=== PATIENT | female | born 1960 | race Caucasian/White ===

== ENCOUNTER 2016-09-20 09:29 | Day surgery (SDC) | payer OTHER ==
[~2016-09-20 09:29] MED LIST: ATOR20TA38 PO; HYDR-3010 PO; LANS30CA PO; TRAZ100T15 PO
== END 2016-09-21 08:12 | disposition home or self-care (01) ==
LOC: GIL 09:29
PROVIDERS: ATTEND Internal Medicine Gastroenterology
DX: Z12.11 Encounter for screening for malignant neoplasm of colon (principal); Z53.9 Procedure and treatment not carried out, unspecified reason

== ENCOUNTER 2016-10-14 14:33 | Emergency (ER) | payer OTHER ==
[~2016-10-14] VITALS: Wt 46.0 kg
[2016-10-14] MEDS ORDERED: PRED20TA PO (15:15)
[2016-10-14] MEDS ORDERED: CARB15DR48 BOTH EARS (15:16)
[2016-10-14] MEDS ORDERED: BEN50 PO (15:16)
[2016-10-14] MEDS ORDERED: NAPH15DR OP (15:16)
--- NOTE | 2016-10-14 15:30 | ERD ---
ER Documentation Chief Complaint Date/Time DATE: 10/14/16 TIME: 15:23 Chief Complaint RASH ALL OVER BODY WORSE AT NIGHT, [place], RIGHT EAR PAIN X3DAYS HPI This is a 55-year-old female with multiple complaints. Patient has had a rash all over her body over the last 3 days. Patient states that she gets very itchy and is not able to sleep at night. Patient has not, contact with any new substances. She denies any lip, tongue, eye swelling.She is also complaining of ear pain and sore throat.Patient denies any difficulty swallowing, denies any ear discharge. She denies any runny nose, fever, chills. She does admit to she and watery eye for the last few days. Denies any eye pain or vision loss. The discharge from her eyes. She denies any chest pain or shortness of breath. There are no sick contacts at home. ROS 12 point review of systems was done, all negative except per HPI. Medications Home Meds Active Scripts Naphazoline Hcl/Phenir Mal (Naphcon-A Eye Drops) 15 Ml Drops, 15 ML OP BID for 3 Days, BOTTLE Prov:JERAMY COBIAN 10/14/16 Carbamide Peroxide* (Debrox*) 6.5% - 15 Ml Drops, 10 DROP BOTH EARS BID for 3 Days, BOTTLE Prov:JERAMY COBIAN 10/14/16 Diphenhydramine Hcl* (Benadryl*) 50 Mg Cap, 50 MG PO Q6 Y for ITCHING for 3 Days , CAP Prov:JERAMY COBIAN 10/14/16 Prednisone* (Prednisone*) 20 Mg Tab, 40 MG PO DAILY for 4 Days, TAB Prov:JERAMY COBIAN 10/14/16 Lansoprazole* (Lansoprazole*) 30 Mg Capsule.dr, 30 MG PO DAILY for 30 Days, CAP Prov:NANCI MÉNDEZ MD 02/23/16 Reported Medications Atorvastatin Calcium* (Atorvastatin Calcium*) 20 Mg Tablet, 20 MG PO QHS, #30 TAB 02/23/16 Hydroxyzine Hcl* (Hydroxyzine Hcl*) 10 Mg Tablet, 10 MG PO QHS, #30 TAB 02/23/16 Trazodone Hcl* (Trazodone Hcl*) 100 Mg Tablet, 100 MG PO QHS, #30 TAB 02/23/16 Allergies Allergies: Coded Allergies: No Known Allergy (Unverified , 02/23/16) PMhx/Soc History of Surgery: Yes (foot surgery, section) Anesthesia Reaction: No Hx Neurological Disorder: Yes (HEAD PAINS) Hx Respiratory Disorders: No Hx Cardiac Disorders: No Hx Psychiatric Problems: No Hx Miscellaneous Medical Probl: Yes (ULCERS) Hx Alcohol Use: No Hx Substance Use: No Hx Tobacco Use: Yes Physical Exam Vitals Vital Signs Date Time Temp Pulse Resp B/P Pulse Ox O2 Delivery O2 Flow Rate FiO2 10/14/16 15:05 97.9 77 18 137/65 99 Physical Exam GENERAL: The patient is well-developed, well-nourished, in no acute distress. NECK: Cervical spine is non tender with no step off. Supple, no nuchal rigidity HEENT: Atraumatic. Pupils equal, round and reactive to light. Extraocular muscles are grossly intact. Conjunctivae pink, no discharge. Cerumen impaction in both years. Tonsillar erythema with no exudates or uvular deviation. Clear rhinorrhea. No tongue, eye, lip swelling. RESPIRATORY: Clear to auscultation bilaterally. There are no rales, wheezes or rhonchi. HEART: Regular rate and rhythm. No murmurs, clicks, rubs or gallops. NEUROLOGIC: Alert and oriented. SKIN: Reveals on bilateral arms and on the abdomen. Procedures/MDM Differential Diagnosis: dermatitis, allergic urticaria, viral exanthem, insect bite, fungal infection ,viral exanthem, hand foot mouth disease, , impetigo, cellulitis, abscess, florentino belén syndrome, meningocemia, necrotizing fasciitis. This is a 55-year-old female presents to the ER with a rash all over her body. At this time etiology of rash is unknown. Patient be having allergic reaction. This is for severe allergic reaction is low. She does not have any facial swelling or difficulty in breathing. Patient does not have any ear infections or throat infections. She does however have cerumen impaction. Patient needs to follow-up with her primary care doctor within 1-2 days return to ER sooner symptoms worsen. My medical decision making was shared with the patient she understands and agrees with plan. Departure Diagnosis: Primary Impression: Rash Additional Impression: Multiple complaints Condition: Stable Patient Instructions: Self-Care for Skin Rashes Additional Instructions: Avani owens doctor MAANA y chelo travis ANNABEL PARA DENTRO DE 1-2 MCCONNELL.Dgale a la secretaria que nosotros le instruimos hacer esta annabel.Avise o llame si crowe condicin se empeora antes de la annabel. Regresa aqui si peor o no mejor. JERAMY COBIAN Oct 14, 2016 15:30
== END 2016-10-14 15:19 | disposition home or self-care (01) ==
LOC: E/R 14:33
DX: R21 Rash and other nonspecific skin eruption (principal); H92.01 Otalgia, right ear; J02.9 Acute pharyngitis, unspecified; Z87.891 Personal history of nicotine dependence
CPT/HCPCS: 99283

== ENCOUNTER 2017-01-10 10:00 | Day surgery (SDC) | payer OTHER ==
[~2017-01-10] VITALS: Ht 149.9 cm; Wt 45.6 kg
[~2017-01-10 10:00] MED LIST changes: +BEN50 PO; +CARB15DR50 BOTH EARS; +NAPH15DR OP; +PRED20TA PO
[2017-01-10] MEDS ORDERED: triamcinolone (11:58)
[2017-01-10] MEDS ORDERED: PRAVASTATIN (11:58)
[2017-01-10] MEDS ORDERED: OMERPRAZOLE (11:58)
[2017-01-10] MEDS ORDERED: CETIRIZINE HCL (11:58)
[2017-01-10 12:03] VITALS: BP 118/72; PULSE 59; RESP 18
[2017-01-10] MEDS ORDERED: PROPOFOL 20 ML ONE (12:23)
[2017-01-10] MEDS ORDERED: LIDOCAINE 2% (SDV) 5 ML INJ ONE (12:23)
[2017-01-10] MEDS ORDERED: FENTAnyl 50 MCG/ML VIAL ONE (13:14)
[2017-01-10] MEDS ORDERED: MIDAZOLAM 1 MG/ML 2 ML INJ ONE ×3 (13:14)
[2017-01-10 13:17] VITALS: BP 105/69; RESP 20
--- NOTE | 2017-01-14 07:13 | GILP ---
DATE OF PROCEDURE: 01/10/2017 PROCEDURE PERFORMED: 1. Esophagogastroduodenoscopy and biopsy. 2. Colonoscopy and biopsy. SURGEON: Beryl Cade MD. PREOPERATIVE DIAGNOSES: 1. Abdominal pain. 2. Screening colonoscopy. POSTOPERATIVE DIAGNOSES: 1. Hiatal hernia. 2. Reflux esophagitis. 3. Gastritis with erosions. 4. Gastric mucosal biopsies were taken for Helicobacter pylori test. 5. Colonoscopy all the way to the cecum. 6. Small polyp from the rectum and another one in the right colon, removed using the biopsy forceps. 7. Diverticulosis of the colon. 8. Internal hemorrhoids. INDICATION: Ms Helen Coppola is a 56-year-old female patient who had upper abdominal pain not responding to therapy. She also needed a screening colonoscopy. The procedure and possible complications were well explained to the patient. The patient understood and consented to the procedures. DESCRIPTION OF PROCEDURE: Under influence of fentanyl and Versed, the gastroscope was carefully introduced into the esophagus. Under direct vision, the gastroscope was advanced to the stomach, into the pylorus, into the duodenal bulb, and descending colon. Findings of esophagus: The patient had a hiatal hernia and reflux esophagitis. Stomach: She had gastritis with erosions, and gastric mucosal biopsies were taken for Helicobacter pylori test. Duodenum was normal. The colonoscope was carefully introduced in the rectum. It was advanced into the sigmoid colon. The patient was very anxious, and she was very resistant to narcotics. So anesthesiologist was called in, and under the influence of anesthesia, the colonoscope was advanced all the way to the cecum. Findings: The patient has diverticulosis of the colon. She also had 2 small colon polyps, one in the rectum and other one in the right colon. They were removed using the biopsy forceps. She was noted to have diverticulosis of the colon and internal hemorrhoids. She tolerated the procedure very well. There were no complications from the procedures. At the end of procedure, she was awake with stable vital signs, and she was discharged home in the care of her family. IMPRESSION: 1. The patient was anxious, and she was very resistant to narcotics, needing monitored anesthesia care for the procedures. 2. Hiatal hernia and reflux esophagitis. 3. Gastritis. 4. Gastric mucosal biopsies were taken for Helicobacter pylori test. 5. Colonoscopy all the way to the cecum. 6. Two small polyps, one in the rectum and other one in the right colon, were removed using the biopsy forceps. 7. Diverticulosis of the colon. 8. Internal hemorrhoids. PLAN: 1. Continue omeprazole. 2. Add Zantac 300 mg p.o. q.h.s. 3. Awaiting histopathology report. 4. Screening colonoscopy in 10 years. Dictated By: MD RISHABH Hammond/laura/josé /Document#: [id number]
== END 2017-01-10 15:58 | disposition home or self-care (01) ==
LOC: GIL 10:00
PROVIDERS: ATTEND Internal Medicine Gastroenterology
DX: Z12.11 Encounter for screening for malignant neoplasm of colon (principal); K63.5 Polyp of colon; K21.0 Gastro-esophageal reflux disease with esophagitis; K29.60 Other gastritis without bleeding; K62.1 Rectal polyp; K57.90 Diverticulosis of intestine, part unspecified, without perforation or abscess without bleeding; K64.8 Other hemorrhoids; E78.5 Hyperlipidemia, unspecified
CPT/HCPCS: 43239; 45380; 88305; J2250; J3010; Z7610

== ENCOUNTER 2017-03-18 13:38 | Emergency (ER) | payer SELFPAY ==
[~2017-03-18] VITALS: Ht 157.5 cm; Wt 46.0 kg
[~2017-03-18 13:38] MED LIST changes: +CETIRIZINE HCL; +HC30CR25 TOP; +OMERPRAZOLE; +PRAVASTATIN; +triamcinolone
[2017-03-18 13:51] VITALS: Ht 157.5 cm; Wt 46.0 kg
== END 2017-03-18 16:38 | disposition left against medical advice (07) ==
LOC: FTE 13:38
DX: Z53.21 Procedure and treatment not carried out due to patient leaving prior to being seen by health care provider (principal)

== ENCOUNTER 2017-04-16 13:29 | Emergency (ER) | payer OTHER ==
[~2017-04-16] VITALS: Ht 160 cm; Wt 45.5 kg
[2017-04-16 13:32] VITALS: Ht 160 cm; Wt 45.5 kg
[2017-04-16] MEDS ORDERED: CETI10CA PO (14:12)
[2017-04-16] MEDS ORDERED: CLOT30CR24 TOP (14:12)
[2017-04-16] MEDS ORDERED: DIPHENHYDRAMINE 50 MG CAP PO ONE (14:30)
[2017-04-16] MEDS ORDERED: predniSONE 20 MG TAB PO ONE (14:30)
--- NOTE | 2017-04-16 14:57 | ERD ---
ER Documentation Chief Complaint Chief Complaint eye itching , rash HPI 56-year-old female is complaining of allergy symptoms 1 year. Patient reports pruritic rash on her skin is all over, and itching of her bilateral upper eyelids. She has seen her PCP for the allergies in the past, was given hydrocortisone cream. Patient stated that her cream had helped, but her symptoms persist. Denies shortness of breath. Denies exposure to new foods or new cleaning products. Denies itchy watery eyes. ROS All systems reviewed and are negative except as per history of present illness. Medications Home Meds Active Scripts Clotrimazole* (Clotrimazole* AF) 1% - 30 Gm Cream.gm., 1 APPLIC TOP BID for 14 Days, TUB Apply to the bra area Prov:TREV CUNNINGHAM NP 04/16/17 Cetirizine Hcl* (Zyrtec*) 10 Mg Capsule, 10 MG PO DAILY, #10 TAB.CHEW Prov:TREV CUNNINGHAM NP 04/16/17 Naphazoline Hcl/Phenir Mal (Naphcon-A Eye Drops) 15 Ml Drops, 15 ML OP QID for 7 Days, BOTTLE Prov:KANCHAN VELOZ MD 03/09/17 Prednisone* (Prednisone*) 20 Mg Tab, 40 MG PO DAILY for 4 Days, TAB Start March 10, 2017 Prov:KANCHAN VELOZ MD 03/09/17 Hydrocortisone* Topical (Hydrocortisone* Topical) 2.5%-28.3 Gm Cream..g., 1 APPLIC TOP BID for 7 Days, #1 TUB Prov:KANCHAN VELOZ MD 03/09/17 Naphazoline Hcl/Phenir Mal (Naphcon-A Eye Drops) 15 Ml Drops, 15 ML OP BID for 3 Days, BOTTLE Prov:JERAMY COBIAN 10/14/16 Carbamide Peroxide* (Debrox*) 6.5% - 15 Ml Drops, 10 DROP BOTH EARS BID for 3 Days, BOTTLE Prov:JERAMY COBIAN 10/14/16 Diphenhydramine Hcl* (Benadryl*) 50 Mg Cap, 50 MG PO Q6 Y for ITCHING for 3 Days , CAP Prov:JERAMY COBIAN 10/14/16 Prednisone* (Prednisone*) 20 Mg Tab, 40 MG PO DAILY for 4 Days, TAB Prov:JERAMY COBIAN 10/14/16 Lansoprazole* (Lansoprazole*) 30 Mg Capsule.dr, 30 MG PO DAILY for 30 Days, CAP Prov:NANCI MÉNDEZ MD 02/23/16 Reported Medications [omerprazole] No Conflict Check 01/10/17 [pravaastatin] No Conflict Check 01/10/17 [cetirizine hcl] No Conflict Check 01/10/17 [triamcinolone] No Conflict Check 01/10/17 Atorvastatin Calcium* (Atorvastatin Calcium*) 20 Mg Tablet, 20 MG PO QHS, #30 TAB 02/23/16 Hydroxyzine Hcl* (Hydroxyzine Hcl*) 10 Mg Tablet, 10 MG PO QHS, #30 TAB 02/23/16 Trazodone Hcl* (Trazodone Hcl*) 100 Mg Tablet, 100 MG PO QHS, #30 TAB 02/23/16 Allergies Allergies: Coded Allergies: No Known Allergy (Unverified , 02/23/16) PMhx/Soc History of Surgery: Yes (c-sec, foot) Anesthesia Reaction: No Hx Neurological Disorder: No Hx Respiratory Disorders: No Hx Cardiac Disorders: Yes (hyperlipidemia) Hx Psychiatric Problems: No Hx Miscellaneous Medical Probl: No Hx Alcohol Use: Yes Hx Substance Use: No Hx Tobacco Use: Yes Smoking Status: Current every day smoker Physical Exam Vitals Vital Signs Date Time Temp Pulse Resp B/P Pulse Ox O2 Delivery O2 Flow Rate FiO2 04/16/17 13:32 98.1 81 18 144/84 98 Physical Exam General: Well-developed, well-nourished, conscious and coherent, in no distress Skin: Warm and dry, good texture and turgor. Confluent, erythematous papules noted on patient's anterior chest within the bra line. Head: Normocephalic without evidence of trauma Eyes: Sclera and conjunctivae normal; pupils equal, round, and reactive to light; extraocular movements are intact. Bilateral upper eyelid mildly erythematous without edema. Chest: Normal AP diameter. Good expansion without retractions. Nontender. Lungs are clear to auscultate bilaterally with good tidal volume Heart: Regular rate and rhythm. No murmur, rub, or gallops heard Extremities: Full range of motion. Good strength bilaterally. No clubbing, cyanosis, or edema. Peripheral pulses are intact. Sensation intact Neuro: Alert and oriented 4, GCS 15. Cranial nerves grossly intact. Motor and sensory exams nonfocal. Moves all extremities. Speech clear. Gait normal Results 24 hrs Current Medications Medications (Trade) Dose Ordered Sig/Vinod Route PRN Reason Start Time Stop Time Status Last Admin Dose Admin Diphenhydramine HCl (Benadryl) 50 mg ONCE ONCE PO 04/16/17 14:30 04/16/17 14:31 DC 04/16/17 14:22 Prednisone (Prednisone) 60 mg ONCE ONCE PO 04/16/17 14:30 04/16/17 14:31 DC 04/16/17 14:22 Procedures/MDM Well-appearing 56-year-old female presented ED with self described allergic symptoms 1 year. Eye exam, patient is noted to have a confluent patch of papules on her anterior chest within the bra line. The pattern and appearance of the lesion is digestive of Vivian infection. She also complaining of itchiness on her left shoulder, along the bra strap. I suspect the patient may have a contact dermatitis secondary to synthetic fabric bra. Also complaining of pain in her bilateral upper eyelids. Upper eyelid showed sign of atrophy, likely secondary to repeated steroid cream use. Patient does not have any sign of anaphylaxis. No sign of allergic conjunctivitis. Patient's request, prednisone and Benadryl given to the patient in the ED. Patient advised to follow-up with her PCP for dermatology referral. Patient appears well, stable for discharge and outpatient management. Medical decision making shared with patient and family. Education provided to patient and family. Patient and family expressed understanding of the plan. Medications on discharge: Zyrtec. Follow-up: Primary care provider in 2-3 days or return to ED if worse. Disclaimer: Inadvertent spelling and grammatical errors are likely due to EHR/ dictation software use and do not reflect on the overall quality of patient care. Also, please note that the electronic time recorded on this note does not necessarily reflect the actual time of the patient encounter. Departure Diagnosis: Primary Impression: Vivian infection Additional Impression: Allergic dermatitis Condition: Stable Patient Instructions: Self-Care for Skin Rashes, Vivian Skin Infection (Adult) Additional Instructions: Llame al doctor MAANA y chelo travis ANNABEL PARA DENTRO DE 2-3 MCCONNELL.Dgale a la secretaria que nosotros le instruimos hacer esta annabel.Avise o llame si crowe condicin se empeora antes de la annabel. Regresa aqui si peor o no mejor. TREV CUNNINGHAM. THOMAS Apr 16, 2017 14:57
== END 2017-04-16 14:29 | disposition home or self-care (01) ==
LOC: FTE 13:29
DX: B37.9 Candidiasis, unspecified (principal); L23.9 Allergic contact dermatitis, unspecified cause; F17.210 Nicotine dependence, cigarettes, uncomplicated
CPT/HCPCS: J7512; Z7610; 99283

== ENCOUNTER 2018-10-30 11:03 | Emergency (ER) | payer OTHER ==
[~2018-10-30] VITALS: Ht 157.5 cm; Wt 46.5 kg
[~2018-10-30 11:03] MED LIST changes: +CETI10CA PO; +CLOT30CR24 TOP; -HYDR-3010 PO; +HYDR-3029 PO; +METH500T PO; +PYRI50TA14 PO; +TRA100 PO; -TRAZ100T15 PO
[2018-10-30 11:16] VITALS: BP 151/70; PULSE 67; RESP 18; Ht 157.5 cm; Wt 46.5 kg
[2018-10-30] MEDS ORDERED: [UNRECOGNIZED DRUG - CODE] TP (13:45)
[2018-10-30] MEDS ORDERED: CETI10CA PO (13:45)
--- NOTE | 2018-10-30 13:49 | ERD ---
ER Documentation Chief Complaint Chief Complaint itchiness to neck and face x 1 month, [facility] primary care HPI 58-year-old female presents for itchiness over the neck and face for 1 month. She states that she has a dermatology appointment coming up however she states that she needs medication now. She denies any fevers or chills. She has had prior similar itchiness in the past about a year ago. She states that the skin is itchiness associated with dry skin. She has tried hydrocortisone 1% cream as well as Benadryl with mild relief. Denies any pain past medical history otherwise. No other modifying factors noted, no other treatments tried at home. ROS All systems reviewed and are negative except as per history of present illness. Medications Home Meds Active Scripts Petrolatum,White (Aquaphor) 396 Gm Oint...g., 1 APPLIC TP TID for hydration/itchiness, #1 TUBE Prov:EWA WASSERMAN DO 10/30/18 Cetirizine Hcl* (Zyrtec*) 10 Mg Capsule, 10 MG PO DAILY PRN for ITCHING, #30 TAB Prov:EWA WASSERMAN DO 10/30/18 Pyridoxine Hcl* (Pyridoxine Hcl*) 50 Mg Tablet, 50 MG PO DAILY for 1 Day, #30 T AB Prov:MARYCRUZ,SONIA 01/06/18 Methocarbamol* (Robaxin*) 500 Mg Tab, 500 MG PO Q8 for 3 Days, #10 TAB Prov:MARYCRUZ,SONIA 01/06/18 Clotrimazole* (Clotrimazole* AF) 1% - 30 Gm Cream.gm., 1 APPLIC TOP BID for 14 Days, TUB Apply to the bra area Prov:TREV CUNNINGHAM NP 04/16/17 Cetirizine Hcl* (Zyrtec*) 10 Mg Capsule, 10 MG PO DAILY, #10 TAB.CHEW Prov:TREV CUNNINGHAM NP 04/16/17 Naphazoline Hcl/Phenir Mal (Naphcon-A Eye Drops) 15 Ml Drops, 15 ML OP QID for 7 Days, BOTTLE Prov:KANCHAN VELOZ MD 03/09/17 Prednisone* (Prednisone*) 20 Mg Tab, 40 MG PO DAILY for 4 Days, TAB Start March 10, 2017 Prov:KANCHAN VELOZ MD 03/09/17 Hydrocortisone* Topical (Hydrocortisone* Topical) 2.5%-28.3 Gm Cream..g., 1 APPLIC TOP BID for 7 Days, #1 TUB Prov:KANCHAN VELOZ MD 03/09/17 Naphazoline Hcl/Phenir Mal (Naphcon-A Eye Drops) 15 Ml Drops, 15 ML OP BID for 3 Days, BOTTLE Prov:JERAMY COBIAN Sarah 10/14/16 Carbamide Peroxide* (Debrox*) 6.5% - 15 Ml Drops, 10 DROP BOTH EARS BID for 3 Days, BOTTLE Prov:JERAMY COBIAN Sarah 10/14/16 Diphenhydramine Hcl* (Benadryl*) 50 Mg Cap, 50 MG PO Q6 PRN for ITCHING for 3 Days, CAP Prov:ARANZA,JERAMY Smith 10/14/16 Prednisone* (Prednisone*) 20 Mg Tab, 40 MG PO DAILY for 4 Days, TAB Prov:JERAMY COBIAN Sarah 10/14/16 Lansoprazole* (Lansoprazole*) 30 Mg Capsule.dr, 30 MG PO DAILY for 30 Days, CAP Prov:NANCI MÉNEDZ MD 02/23/16 Reported Medications [omerprazole] No Conflict Check 01/10/17 [pravaastatin] No Conflict Check 01/10/17 [cetirizine hcl] No Conflict Check 01/10/17 [triamcinolone] No Conflict Check 01/10/17 Atorvastatin Calcium* (Atorvastatin Calcium*) 20 Mg Tablet, 20 MG PO QHS, #30 TAB 02/23/16 Hydroxyzine Hcl* (Hydroxyzine Hcl*) 10 Mg Tablet, 10 MG PO QHS, #30 TAB 02/23/16 Trazodone Hcl* (Trazodone Hcl*) 100 Mg Tablet, 100 MG PO QHS, #30 TAB 02/23/16 Allergies Allergies: Coded Allergies: No Known Allergy (Unverified , 02/23/16) PMhx/Soc History of Surgery: Yes (c-sec, foot) Anesthesia Reaction: No Hx Neurological Disorder: No Hx Respiratory Disorders: No Hx Cardiac Disorders: Yes (hyperlipidemia) Hx Psychiatric Problems: No Hx Miscellaneous Medical Probl: No Hx Alcohol Use: Yes Hx Substance Use: No Hx Tobacco Use: Yes FmHx Family History: No coronary disease Physical Exam Vitals Vital Signs Date Temp Pulse Resp B/P (MAP) Pulse Ox O2 O2 Flow FiO2 Time Delivery Rate 10/30/18 98.0 67 18 151/70 100 11:16 (97) Physical Exam Const: No acute distress Resp: Clear to auscultation bilaterally Cardio: Regular rate and rhythm, no murmurs Abd: Soft, non tender, non distended. Normal bowel sounds Skin: Mild erythema and dryness noted over the neck as well as some areas of dryness around the periorbital area Back: No midline or flank tenderness Ext: No cyanosis, or edema Neur: Awake and alert Psych: Normal Mood and Affect Results 24 hrs Current Medications Medications Dose Sig/Vinod Start Time Status Last (Trade) Ordered Route PRN Stop Time Admin Dose Reason Admin Loratadine 10 mg ONCE ONCE 10/30/18 (Claritin) PO 14:00 10/30/18 14:01 Procedures/MDM Medical Decision Making: Differential diagnosis includes but not limited to atopic dermatitis, contact dermatitis, allergic reaction, cellulitis Patient appeared well on physical exam. Physical examination consistent with an atopic dermatitis. Patient has a referral to neurology coming up soon however she states that she could not wait and needs medication now. Patient given Claritin in the ER for itchiness. Prescription(s): Patient given prescription for supportive medication(s). Patient advised regarding importance of using emollient. Advised to continue to use hydrocortisone cream as needed and Benadryl as needed. Patient given prescription for cetirizine for daytime use to avoid drowsiness. Advised to keep her appointment with dermatology. Patient advised to follow up with PCP in 1-2 days. Patient advised to return to ED for new or worsening symptoms. Patient stable on discharge from the ED. Disclaimer: Inadvertent spelling and grammatical errors are likely due to EHR/dictation software use and do not reflect on the overall quality of patient care. Also, please note that the electronic time recorded on this note does not necessarily reflect the actual time of the patient encounter. Departure Diagnosis: Primary Impression: Dermatitis Condition: Fair Patient Instructions: Atopic Dermatitis (Eczema) Referrals: COMMUNITY CLINICS YOU HAVE RECEIVED A MEDICAL SCREENING EXAM AND THE RESULTS INDICATE THAT YOU DO NOT HAVE A CONDITION THAT REQUIRES URGENT TREATMENT IN THE EMERGENCY DEPARTMENT. FURTHER EVALUATION AND TREATMENT OF YOUR CONDITION CAN WAIT UNTIL YOU ARE SEEN IN YOUR DOCTORS OFFICE WITHIN THE NEXT 1-2 DAYS. IT IS YOUR RESPONSIBILITY TO MAKE AN APPOINTMENT FOR FOLOW-UP CARE. IF YOU HAVE A PRIMARY DOCTOR --you should call your primary doctor and schedule an appointment IF YOU DO NOT HAVE A PRIMARY DOCTOR YOU CAN CALL OUR PHYSICIAN REFERRAL HOTLINE AT IF YOU CAN NOT AFFORD TO SEE A PHYSICIAN YOU CAN CHOSE FROM THE FOLLOWING [facility] [address] [facility] [address] [facility] [address] [facility] [address] [facility]. [facility] [address] [facility]. [facility]. [address] Additional Instructions: Call your primary care doctor TOMORROW for an appointment during the next 1-2 days.See the doctor sooner or return here if your condition worsens before your appointment time. Follow up with offline cutter EWA WASSERMAN DO October 30, 2018 13:49
[2018-10-30] MEDS ORDERED: LORATADINE 10 MG TAB PO ONE (14:00)
== END 2018-10-30 14:25 | disposition home or self-care (01) ==
LOC: FTE 11:03
DX: L30.9 Dermatitis, unspecified (principal); Z87.891 Personal history of nicotine dependence
CPT/HCPCS: Z7502; Z7610; 99282

== ENCOUNTER 2018-11-04 11:22 | Emergency (ER) | payer OTHER ==
[~2018-11-04] VITALS: Wt 44.0 kg
[~2018-11-04 11:22] MED LIST changes: +[UNRECOGNIZED DRUG - CODE] TP
[2018-11-04 11:26] VITALS: BP 150/84; PULSE 74; RESP 18
[2018-11-04] MEDS ORDERED: LEVO5TAB28 PO (12:17)
[2018-11-04] MEDS ORDERED: MED4DP PO (12:17)
[2018-11-04] MEDS ORDERED: DOXY100T20 PO (12:17)
[2018-11-04] MEDS ORDERED: DIPHENHYDRAMINE 25 MG CAP PO ONE (12:30)
[2018-11-04] MEDS ORDERED: FAMOTIDINE 20 MG TAB PO ONE (12:30)
--- NOTE | 2018-11-04 15:19 | ERD ---
ER Documentation Chief Complaint Chief Complaint rash after taking penicillins for the past 2 days. no sob no stridor HPI 58-year-old female presenting with rash after taking penicillin for 2 days. Patient denies any facial swelling or troubles breathing. No fevers. Patient has not taken medications to help resolve the rash. She states the rash is itchy and is primarily to her chest and face. Denies any swelling. Denies other medical problems. NKDA. Surgical history denies. Social history denies ROS All systems reviewed and are negative except as per history of present illness. Medications Home Meds Active Scripts Levocetirizine Dihydrochloride (Xyzal) 5 Mg Tablet, 5 MG PO QPM, #30 TAB Prov:JULIO CESAR JOYCE PA-C 11/04/18 Methylprednisolone* (Medrol* DOSE PACK) 4 Mg/Dose-Pack Tab.ds.pk, 4 MG PO . DIRECTED, #1 PACKET Prov:JULIO CESAR JOYCE PA-C 11/04/18 Doxycycline Hyclate* (Doxycycline Hyclate*) 100 Mg Tablet.dr, 100 MG PO BID for 10 Days, TAB Prov:JULIO CESAR JOYCE PA-C 11/04/18 Petrolatum,White (Aquaphor) 396 Gm Oint...g., 1 APPLIC TP TID for hydration/i tchiness, #1 TUBE Prov:EWA WASSERMAN DO 10/30/18 Cetirizine Hcl* (Zyrtec*) 10 Mg Capsule, 10 MG PO DAILY PRN for ITCHING, #30 TAB Prov:EWA WASSERMAN DO 10/30/18 Pyridoxine Hcl* (Pyridoxine Hcl*) 50 Mg Tablet, 50 MG PO DAILY for 1 Day, #30 TAB Prov:MARYCRUZ,SONIA 01/06/18 Methocarbamol* (Robaxin*) 500 Mg Tab, 500 MG PO Q8 for 3 Days, #10 TAB Prov:MARYCRUZ,SONIA 01/06/18 Clotrimazole* (Clotrimazole* AF) 1% - 30 Gm Cream.gm., 1 APPLIC TOP BID for 14 Days, TUB Apply to the bra area Prov:TREV CUNNINGHAM NP 04/16/17 Cetirizine Hcl* (Zyrtec*) 10 Mg Capsule, 10 MG PO DAILY, #10 TAB.CHEW Prov:OCTAVIO,TREV Mukesh DIRECTOR INDEX 04/16/17 Naphazoline Hcl/Phenir Mal (Naphcon-A Eye Drops) 15 Ml Drops, 15 ML OP QID for 7 Days, BOTTLE Prov:KANCHAN VELOZ MD 03/09/17 Prednisone* (Prednisone*) 20 Mg Tab, 40 MG PO DAILY for 4 Days, TAB Start March 10, 2017 Prov:KANCHAN VELOZ MD 03/09/17 Hydrocortisone* Topical (Hydrocortisone* Topical) 2.5%-28.3 Gm Cream..g., 1 APPLIC TOP BID for 7 Days, #1 TUB Prov:KANCHAN VELOZ MD 03/09/17 Naphazoline Hcl/Phenir Mal (Naphcon-A Eye Drops) 15 Ml Drops, 15 ML OP BID for 3 Days, BOTTLE Prov:JERAMY COBIAN 10/14/16 Carbamide Peroxide* (Debrox*) 6.5% - 15 Ml Drops, 10 DROP BOTH EARS BID for 3 Days, BOTTLE Prov:JERAMY COBIAN 10/14/16 Diphenhydramine Hcl* (Benadryl*) 50 Mg Cap, 50 MG PO Q6 PRN for ITCHING for 3 Days, CAP Prov:JERAMY COBIAN 10/14/16 Prednisone* (Prednisone*) 20 Mg Tab, 40 MG PO DAILY for 4 Days, TAB Prov:JERAMY COBIAN 10/14/16 Lansoprazole* (Lansoprazole*) 30 Mg Capsule.dr, 30 MG PO DAILY for 30 Days, CAP Prov:NANCI MÉNDEZ MD 02/23/16 Reported Medications [omerprazole] No Conflict Check 01/10/17 [pravaastatin] No Conflict Check 01/10/17 [cetirizine hcl] No Conflict Check 01/10/17 [triamcinolone] No Conflict Check 01/10/17 Atorvastatin Calcium* (Atorvastatin Calcium*) 20 Mg Tablet, 20 MG PO QHS, #30 TAB 02/23/16 Hydroxyzine Hcl* (Hydroxyzine Hcl*) 10 Mg Tablet, 10 MG PO QHS, #30 TAB 02/23/16 Trazodone Hcl* (Trazodone Hcl*) 100 Mg Tablet, 100 MG PO QHS, #30 TAB 02/23/16 Allergies Allergies: Coded Allergies: No Known Allergy (Unverified , 02/23/16) PMhx/Soc Medical and Surgical Hx: pt denies Medical Hx History of Surgery: Yes ( x1) Anesthesia Reaction: No Hx Neurological Disorder: No Hx Respiratory Disorders: No Hx Cardiac Disorders: No Hx Psychiatric Problems: No Hx Miscellaneous Medical Probl: No Hx Alcohol Use: No Hx Substance Use: No Hx Tobacco Use: No Smoking Status: Never smoker FmHx Family History: No diabetes, No coronary disease, No other Physical Exam Vitals Vital Signs Date Temp Pulse Resp B/P (MAP) Pulse Ox O2 O2 Flow FiO2 Time Delivery Rate 11/04/18 98.1 74 18 150/84 98 11:26 (106) Physical Exam GENERAL: The patient is well-appearing, well-nourished, in no acute distress HEENT: Atraumatic. Conjunctivae are pink. Pupils equal, round, and reactive to light. There is no scleral icterus. Tympanic membranes clear bilaterally. Oropharynx clear. No nystagmus or photophobia. NECK: C-spine is soft and supple. There is no meningismus. There is no cervical lymphadenopathy. CHEST: Clear to auscultation bilaterally. There are no rales, wheezes or rhonchi. HEART: Regular rate and rhythm. No murmurs, clicks, rubs or gallops. SKIN: Erythema and rash noted to chest and face. Urticarial in nature. No vesicles or pustules. Results 24 hrs Current Medications Medications Dose Sig/Vinod Start Time Status Last (Trade) Ordered Route PRN Stop Time Admin Dose Reason Admin 25 mg ONCE ONCE 11/04/18 DC 11/04/18 Diphenhydrami PO 12:30 12:16 ne HCl 11/04/18 12:31 (Benadryl) Famotidine 20 mg ONCE ONCE 11/04/18 DC 11/04/18 (Pepcid) PO 12:30 12:16 11/04/18 12:31 Procedures/MDM ER course: Benadryl and Pepcid given in ED. Patient declined steroids. MDM: 58-year-old female presenting with rash. I have low suspicion for parasitic or viral rash. Patient appeared to have allergic reaction. Patient did not have findings consistent with anaphylaxis. Antibiotics will be changed she is told to stop taking penicillin. Patient is recommended to follow-up with primary care. All questions answered at discharge Departure Diagnosis: Primary Impression: Dental infection Additional Impression: Rash Condition: Stable Patient Instructions: Allergic Reaction, Drug Additional Instructions: FOLLOW UP WITH YOUR PRIMARY CARE PHYSICIAN TOMORROW.Return to this facility if you are not improving as expected. JULIO CESAR JOYCE PA-C November 04, 2018 15:19
== END 2018-11-04 12:57 | disposition home or self-care (01) ==
LOC: FTE 11:22
DX: K04.7 Periapical abscess without sinus (principal)
CPT/HCPCS: Z7502; Z7610; 99282

== ENCOUNTER 2018-11-06 12:03 | Emergency (ER) | payer OTHER ==
[~2018-11-06] VITALS: Ht 154.9 cm; Wt 47.8 kg
[~2018-11-06 12:03] MED LIST changes: +DOXY100T20 PO; +LEVO5TAB28 PO; +MED4DP PO
[2018-11-06 12:10] VITALS: BP 138/76; PULSE 78; RESP 18; Ht 154.9 cm; Wt 47.8 kg
--- NOTE | 2018-11-11 06:00 | ERD ---
ER Documentation Chief Complaint Chief Complaint was seen here for rash on face and neck yesterday , here for same , no sob HPI 58-year-old female patient with no significant past medical history presents ED complaining of a rash started on her face and neck throat days ago. States that she has been scratching her face and neck. Reports that she tried Aquaphor which did not work initially. States that she was prescribed hydrocortisone, Xyzal, Medrol Dosepak, doxycycline which she feels that the antibiotics is making it worse. ROS All systems reviewed and are negative except as per history of present illness. Medications Home Meds Active Scripts Levocetirizine Dihydrochloride (Xyzal) 5 Mg Tablet, 5 MG PO QPM, #30 TAB Prov:JULIO CESAR JOYCE PA-C 11/04/18 Methylprednisolone* (Medrol* DOSE PACK) 4 Mg/Dose-Pack Tab.ds.pk, 4 MG PO . DIRECTED, #1 PACKET Prov:JULIO CESAR JOYCE PA-C 11/04/18 Doxycycline Hyclate* (Doxycycline Hyclate*) 100 Mg Tablet.dr, 100 MG PO BID for 10 Days, TAB Prov:JULIO CESAR JOYCE PA-C 11/04/18 Petrolatum,White (Aquaphor) 396 Gm Oint...g., 1 APPLIC TP TID for hydration/itchiness, #1 TUBE Prov:EWA WASSERMAN DO 10/30/18 Cetirizine Hcl* (Zyrtec*) 10 Mg Capsule, 10 MG PO DAILY PRN for ITCHING, #30 TAB Prov:EWA WASSERMAN DO 10/30/18 Pyridoxine Hcl* (Pyridoxine Hcl*) 50 Mg Tablet, 50 MG PO DAILY for 1 Day, #30 TAB Prov:MARYCRUZ,SONIA 01/06/18 Methocarbamol* (Robaxin*) 500 Mg Tab, 500 MG PO Q8 for 3 Days, #10 TAB Prov:MARYCRUZ,SONIA 01/06/18 Clotrimazole* (Clotrimazole* AF) 1% - 30 Gm Cream.gm., 1 APPLIC TOP BID for 14 Days, TUB Apply to the bra area Prov:TREV CUNNINGHAM NP 04/16/17 Cetirizine Hcl* (Zyrtec*) 10 Mg Capsule, 10 MG PO DAILY, #10 TAB.CHEW Prov:OCTAVIOTREVZACK Mayorga NP 04/16/17 Naphazoline Hcl/Phenir Mal (Naphcon-A Eye Drops) 15 Ml Drops, 15 ML OP QID for 7 Days, BOTTLE Prov:KANCHAN VELOZ MD 03/09/17 Prednisone* (Prednisone*) 20 Mg Tab, 40 MG PO DAILY for 4 Days, TAB Start March 10, 2017 Prov:KANCHAN VELOZ MD 03/09/17 Hydrocortisone* Topical (Hydrocortisone* Topical) 2.5%-28.3 Gm Cream..g., 1 APPLIC TOP BID for 7 Days, #1 TUB Prov:KANCHAN VELOZ MD 03/09/17 Naphazoline Hcl/Phenir Mal (Naphcon-A Eye Drops) 15 Ml Drops, 15 ML OP BID for 3 Days, BOTTLE Prov:JERAMY COBIAN 10/14/16 Carbamide Peroxide* (Debrox*) 6.5% - 15 Ml Drops, 10 DROP BOTH EARS BID for 3 Days, BOTTLE Prov:JERAMY COBIAN 10/14/16 Diphenhydramine Hcl* (Benadryl*) 50 Mg Cap, 50 MG PO Q6 PRN for ITCHING for 3 Days, CAP Prov:JERAMY COBIAN 10/14/16 Prednisone* (Prednisone*) 20 Mg Tab, 40 MG PO DAILY for 4 Days, TAB Prov:JERAMY COBIAN 10/14/16 Lansoprazole* (Lansoprazole*) 30 Mg Capsule.dr, 30 MG PO DAILY for 30 Days, CAP Prov:NANCI MÉNDEZ MD 02/23/16 Reported Medications [omerprazole] No Conflict Check 01/10/17 [pravaastatin] No Conflict Check 01/10/17 [cetirizine hcl] No Conflict Check 01/10/17 [triamcinolone] No Conflict Check 01/10/17 Atorvastatin Calcium* (Atorvastatin Calcium*) 20 Mg Tablet, 20 MG PO QHS, #30 TAB 02/23/16 Hydroxyzine Hcl* (Hydroxyzine Hcl*) 10 Mg Tablet, 10 MG PO QHS, #30 TAB 02/23/16 Trazodone Hcl* (Trazodone Hcl*) 100 Mg Tablet, 100 MG PO QHS, #30 TAB 02/23/16 Allergies Allergies: Coded Allergies: No Known Allergy (Unverified , 02/23/16) PMhx/Soc Medical and Surgical Hx: pt denies Medical Hx History of Surgery: Yes ( x1) Anesthesia Reaction: No Hx Neurological Disorder: No Hx Respiratory Disorders: No Hx Cardiac Disorders: No Hx Psychiatric Problems: No Hx Miscellaneous Medical Probl: No Hx Alcohol Use: No Hx Substance Use: No Hx Tobacco Use: No Smoking Status: Never smoker FmHx Family History: No diabetes, No coronary disease Physical Exam Vitals 1038.3 Pulse 78 Systolic blood pressure 138 Diastolic blood pressure 76 Respiratory rate 18 O2 sat 90 Physical Exam Const: [id number], well-nourished. In no acute distress. Head: Atraumatic, normocephalic Eyes: Normal Conjunctiva without injection. No purulent discharge. PERRL. EOMI ENT: Normal external ear. Ear canal without erythema. Tympanic membrane pearly house without effusion or bulging. Nasal canal clear with normal turbinates. Moist oropharynx without tonsillar exudates. Non-erythematous pharynx. Uvula midline. No drooling. No trismus. No angioedema. Neck: Full range of motion. No meningismus. No cervical lymphadenopathy. Resp: Clear to auscultation bilaterally. No wheezing, rhonchi, rales, or crackles. No accessory muscle use. No retractions. Cardio: Regular rate and rhythm. No murmurs, rubs or gallops. Abd: Soft, non tender, non distended. Normal bowel sounds. No palpable masses. No rebound tenderness. No guarding. Skin: No petechiae or purpura. Eczematous dry rash, erythema noted on her cheeks, forehead, neck with no edema. No fluctuance or induration. Back: No midline tenderness. No CVA tenderness. Ext: No cyanosis, or edema. Neur: Awake and alert. Psych: Normal Mood and Affect Procedures/MDM 58-year-old female patient with no significant past medical history presents to the ED for a rash on her face and neck that started to worsen. Patient is afebrile and nontoxic-appearing. Patient reports she has been taking antibiotics due to having a dental infection. Patient reports that she does have an appointment with a home specialist. Instructed patient to discontinue taking antibiotics. Continue to apply sparingly on affected areas with hydrocortisone and continue course of medrol dosepak. Low suspicion for anaphylaxis, scabies, SJS/TEN, TSS, Lyme's Disease, syphilis, RMSF, shingles, disseminated gonorrhea chlamydia, DIC, TTP, ITP, erythema multiforme, sepsis, cellulitis, necrotizing fasciitis, gangrene, meningococcemia, allergic contact dermatitis, urticaria, eczema, tinea infection, or other emergent conditions. Diagnosis: Rash and other nonspecific skin eruption Discharge medications: Continue Xyzal, Medrol Dosepak, hydrocortisone Follow up with primary care physician in 1-2 days. Instructed patient to return to the ED sooner for any worsening symptoms. Patient's questions were answered. Patient is hemodynamically stable. Patient understood and agreed with discharge plan. Patient discharged stable. Disclaimer: Inadvertent spelling and grammatical errors are likely due to EHR/dictation software use and do not reflect on the overall quality of patient care. Also, please note that the electronic time recorded on this note does not necessarily reflect the actual time of the patient encounter. Departure Diagnosis: Primary Impression: Rash and other nonspecific skin eruption Condition: Stable Patient Instructions: Self-Care for Skin Rashes Referrals: [facility] YOU HAVE RECEIVED A MEDICAL SCREENING EXAM AND THE RESULTS INDICATE THAT YOU DO NOT HAVE A CONDITION THAT REQUIRES URGENT TREATMENT IN THE EMERGENCY DEPARTMENT. FURTHER EVALUATION AND TREATMENT OF YOUR CONDITION CAN WAIT UNTIL YOU ARE SEEN IN YOUR DOCTORS OFFICE WITHIN THE NEXT 1-2 DAYS. IT IS YOUR RESPONSIBILITY TO MAKE AN APPOINTMENT FOR FOLOW-UP CARE. IF YOU HAVE A PRIMARY DOCTOR --you should call your primary doctor and schedule an appointment IF YOU DO NOT HAVE A PRIMARY DOCTOR YOU CAN CALL OUR PHYSICIAN REFERRAL HOTLINE AT IF YOU CAN NOT AFFORD TO SEE A PHYSICIAN YOU CAN CHOSE FROM THE FOLLOWING [facility] [address] [facility] [address] [facility] [address] [facility] [address] [facility] [address] [facility] [address] [place] [facility] Sanjuana se person hecho un examen mdico de control que le indica que no est en travis condicin que requiera tratamiento urgente en el Departamento de Emergencia. Un estudio ms profundo y el tratamiento de crowe condicin pueden esperar sin ningn riesgo hasta que usted sea atendida/o en el consultorio de crowe mdico o travis clnica. Es responsabilidad suya arreglar travis ander para el seguimiento del maxi. MANEJO DE CONDICIONES NO URGENTES EN EL FUTURO 1) Si usted tiene un mdico de atencin primaria: Sanjuana debera llamar a crowe mdico de atencin primaria antes de venir al departamento de emergencia. Despus de las horas de consultorio, crowe doctor o crowe asociado/a est disponible por telfono. El mdico o enfermero de ermias en el servicio telefnico puede asesorarle por david medio para atender el problema, o maxi contrario se puede programar travis ander. 2) Si usted no tiene un mdico de atencin primaria: Llame al mdico o clnica de referencia que aparece abajo regis las horas de consultorio para hacer travis ander para que le vean. CLINICAS: [facility] [phone] [facility] [phone] [address] [place] [phone] [facility]. [place] [phone] [facility]. [place] [phone] [facility] [phone] [address] [facility]. [facility] () Sanjuana se person hecho un examen mdico de control que le indica que no est en travis condicin que requiera tratamiento urgente en el Departamento de Emergencia. Un estudio ms profundo y el tratamiento de crowe condicin pueden esperar sin ningn riesgo hasta que usted sea atendida/o en el consultorio de crowe mdico o travis clnica. Es responsabilidad suya arreglar travis ander para el seguimiento del maxi. MANEJO DE CONDICIONES NO URGENTES EN EL FUTURO 1) Si usted tiene un mdico de atencin primaria: Sanjuana debera llamar a crowe mdico de atencin primaria antes de venir al departamento de emergencia. Despus de las horas de consultorio, crowe doctor o crowe asociado/a est disponible por telfono. El mdico o enfermero de ermias en el servicio telefnico puede asesorarle por david medio para atender el problema, o maxi contrario se puede programar travis ander. 2) Si usted no tiene un mdico de atencin primaria: Llame al mdico o condado institucions de referencia que aparece abajo regis las horas de consultorio para hacer travis ander para que le vean. SI USTED NO PUEDE PAGAR PARA PETER UN MEDICO puede ir a: [facility] [id number] [place] [address] [facility] [address] [place] [address] [facility] [address] [place] [address] PARA [facility] [address] [place] [address] Additional Instructions: Seguimiento con el dermatlogo maana para travis mayor evaluacin y tratamiento Dgale a la secretaria que nosotros le instruimos hacer esta ander.Avise o llame si crowe condicin se empeora antes de la ander. Regresa aqui si peor o no mejor. BLAKE NAVARRO PA-C November 11, 2018 06:00
== END 2018-11-06 14:59 | disposition left against medical advice (07) ==
LOC: FTE 12:03
DX: R21 Rash and other nonspecific skin eruption (principal)
CPT/HCPCS: 99282